=== PATIENT | female | born 1930 | race Caucasian/White ===

== ENCOUNTER 2016-07-22 18:34 | Inpatient (IN) | payer OTHER ==
[~2016-07-22] VITALS: Ht 152.4 cm; Wt 44.5 kg
[~2016-07-22 18:34] MED LIST: ACET325T14 PO; ALPR-475; AMLO10TA4 PO; DOCU100C8; FAMO-79 PO; HYDR-3144 PO; HYDR1TAB16; LEVO500T8 PO; LISI-467 PO; LISI30TA; METO-93 PO; METO25TA2; MIRT30TA3; SIMV20TA
[2016-07-22] MEDS ORDERED: SODIUM CHLORIDE 0.9% 1,000ML IVBOLUS ONE ×2 (19:30→20:00)
[2016-07-22] MEDS ORDERED: SODIUM CHLORIDE FLUSH 10ML SYR IVF ONE (20:00)
[2016-07-22] MEDS ORDERED: DILTIAZEM 5 MG/ML, 5ML IVPush ONE (20:00)
[2016-07-22 20:17] LABS: HEMOGLOBIN 12.9 g/dL (11.7-16.4)
[2016-07-22] MEDS ORDERED: DILTIAZEM 5 MG/ML, 5ML ONE (20:21)
[2016-07-22 20:30] LABS: ASPARTATE AMINO TRANSFERASE 15 U/L (15-37); BLOOD UREA NITROGEN 50 mg/dL (7-18)
[2016-07-22] MEDS ORDERED: DILTIAZEM 125 MG in DEXTROSE 5% 100 ML IV SCH (20:43)
[2016-07-22] MEDS ORDERED: UNKNOWN BP MED PO (20:47)
[2016-07-22 21:58] LABS: PATH.CAST-FLAG NOT PRESENT; SPERM-FLAG NOT PRESENT; SRC-FLAG NOT PRESENT; XTAL-FLAG NOT PRESENT; YLC-FLAG NOT PRESENT
[2016-07-22] MEDS ORDERED: SODIUM CHLORIDE FLUSH 10ML SYR IVF PRN (22:30)
[2016-07-22] MEDS ORDERED: ACETAMINOPHEN 325 MG TABLET PO PRN (23:00)
[2016-07-22] MEDS ORDERED: ONDANSETRON ODT 4 MG PO PRN (23:00)
[2016-07-22] MEDS ORDERED: BISACODYL 10 MG SUPP PR PRN (23:00)
[2016-07-22] MEDS ORDERED: POLYETHYLENE GLYCOL 17 GM PACKET PO PRN (23:00)
[2016-07-22] MEDS ORDERED: VANCOMYCIN PER PHARMACY MC PRN (23:00)
[2016-07-22] MEDS ORDERED: ENOXAPARIN 40 MG/0.4 ML SQ SCH (23:00)
[2016-07-22] MEDS ORDERED: DOCUSATE 100 MG CAPSULE PO PRN (23:00)
[2016-07-23] MEDS ORDERED: CEFTRIAXONE PMX 2GM/50ML 50 ML ONE (00:15)
[2016-07-23] MEDS ORDERED: NS + 20MEQ KCL 1,000 ML IV ONE (00:16)
[2016-07-23] MEDS ORDERED: ENOXAPARIN 40 MG/0.4 ML ONE (00:17)
[2016-07-23] MEDS: CEFTRIAXONE PMX 2GM/50ML 50 ML IV SCH ×2 (00:56→23:25)
[2016-07-23] MEDS: NS + 20MEQ KCL 1,000 ML IV SCH ×4 (00:56→18:34)
[2016-07-23] MEDS ORDERED: PHARMACOKINETIC MONITORING MC PRN (02:30)
[2016-07-23] MEDS: VANCOMYCIN PMX 1GM/200ML 200 ML IV SCH (03:53)
[2016-07-23] MEDS: ENOXAPARIN 30 MG/0.3 ML SQ SCH (03:57)
[2016-07-23 04:53] LABS: HEMOGLOBIN 11.9 g/dL (11.7-16.4)
[2016-07-23 05:01] VITALS: BP 146/94
[2016-07-23 05:14] LABS: ASPARTATE AMINO TRANSFERASE 11 U/L (15-37); BLOOD UREA NITROGEN 36 mg/dL (7-18)
[2016-07-23 05:19] LABS: IS PT STATUS REG ER OR PRE ER? NO
[2016-07-23] MEDS: ASPIRIN 325 MG TABLET PO SCH (05:21)
[2016-07-23 08:01] VITALS: BP 159/84
[2016-07-23 11:13] LABS: IS PT STATUS REG ER OR PRE ER? NO
[2016-07-23] MEDS: DILTIAZEM 120 MG CAP.ER.12H PO SCH (12:18)
[2016-07-23 13:16] VITALS: BP 136/95
[2016-07-23] MEDS: VANCOMYCIN 50 MG/ML ORAL SUSP PO SCH ×2 (15:30→21:03)
[2016-07-23 19:35] VITALS: BP 89/47
[2016-07-23] MEDS: SIMVASTATIN 20 MG TABLET PO SCH (21:03)
[2016-07-24 00:24] VITALS: BP 123/100
[2016-07-24] MEDS ORDERED: ALBUTEROL SULFATE 2.5 MG/3 ML ONE (02:09)
[2016-07-24] MEDS: ENOXAPARIN 30 MG/0.3 ML SQ SCH (02:43)
[2016-07-24] MEDS: VANCOMYCIN PMX 1GM/200ML 200 ML IV SCH (02:44)
[2016-07-24] MEDS: NS + 20MEQ KCL 1,000 ML IV SCH (02:44)
[2016-07-24] MEDS: VANCOMYCIN 50 MG/ML ORAL SUSP PO SCH ×4 (02:45→20:58)
[2016-07-24 03:00] LABS: ABG COLLECTION SITE RIGHT RADIAL; COLLATERAL CIRCULATION TESTING NORMAL
[2016-07-24] MEDS ORDERED: ALBUTEROL SULFATE 2.5 MG/3 ML NPPB PRN (03:00)
[2016-07-24] MEDS ORDERED: FUROSEMIDE 40 MG/4 ML IV ONE (04:00)
[2016-07-24 07:02] VITALS: BP 98/73
[2016-07-24] MEDS: ASPIRIN 325 MG TABLET PO SCH (08:16)
[2016-07-24] MEDS: DILTIAZEM 120 MG CAP.ER.12H PO SCH (08:16)
[2016-07-24 08:49] LABS: BLOOD UREA NITROGEN 17 mg/dL (7-18)
[2016-07-24] MEDS ORDERED: NITROFURANTOIN (MACROBID) 100 MG CAPSULE PO SCH (11:30)
[2016-07-24] MEDS: CEFTRIAXONE PMX 1GM/50ML 50 ML IV SCH (12:39)
[2016-07-24 12:56] VITALS: BP 84/62
[2016-07-24] MEDS ORDERED: SODIUM CHLORIDE 0.9%, 250ML IVBOLUS ONE (15:30)
[2016-07-24] MEDS: SIMVASTATIN 20 MG TABLET PO SCH (20:58)
[2016-07-24] MEDS: LABETALOL 5MG/ML, 20ML IV PRN (22:17)
[2016-07-25] MEDS: LABETALOL 5MG/ML, 20ML IV PRN ×2 (02:25→12:43)
[2016-07-25] MEDS: VANCOMYCIN 50 MG/ML ORAL SUSP PO SCH ×4 (02:32→21:09)
[2016-07-25] MEDS: VANCOMYCIN PMX 1GM/200ML 200 ML IV SCH (02:33)
[2016-07-25] MEDS: ENOXAPARIN 30 MG/0.3 ML SQ SCH (02:33)
[2016-07-25] MEDS: ASPIRIN 325 MG TABLET PO SCH ×2 (06:00→06:39)
[2016-07-25] MEDS: DILTIAZEM 120 MG CAP.ER.12H PO SCH (09:00)
[2016-07-25 09:09] LABS: HEMOGLOBIN 12.4 g/dL (11.7-16.4)
[2016-07-25 09:16] LABS: BLOOD UREA NITROGEN 11 mg/dL (7-18)
[2016-07-25 09:24] LABS: DIFF TOTAL CELLS COUNTED 100 CELL DIFF
[2016-07-25] MEDS ORDERED: POTASSIUM CHLORIDE 20 MEQ in SODIUM CHLORIDE 0.9% 250 ML IV ONE (09:30)
[2016-07-25 09:37] LABS: VERIFY COUNTS? YES
[2016-07-25] MEDS: CEFTRIAXONE PMX 1GM/50ML 50 ML IV SCH (11:18)
[2016-07-25 14:55] VITALS: BP 160/77
[2016-07-25 15:16] VITALS: BP 197/95
[2016-07-25 18:37] VITALS: BP 151/87
[2016-07-25 19:07] VITALS: BP 173/84
[2016-07-25] MEDS: SIMVASTATIN 20 MG TABLET PO SCH ×2 (21:00→21:09)
[2016-07-26] MEDS: VANCOMYCIN 50 MG/ML ORAL SUSP PO SCH ×4 (02:30→21:11)
[2016-07-26] MEDS: ENOXAPARIN 30 MG/0.3 ML SQ SCH (05:46)
[2016-07-26] MEDS: VANCOMYCIN PMX 1GM/200ML 200 ML IV SCH (05:55)
[2016-07-26] MEDS: ASPIRIN 325 MG TABLET PO SCH (05:56)
[2016-07-26 06:35] VITALS: BP 156/83
[2016-07-26] MEDS: DILTIAZEM 120 MG CAP.ER.12H PO SCH ×2 (09:42→11:42)
[2016-07-26] MEDS: LEVOFLOXACIN/PMX 500MG/100ML 100 ML IV SCH (11:41)
[2016-07-26 12:30] VITALS: BP 122/92
[2016-07-26 19:19] VITALS: BP 140/79
[2016-07-26] MEDS: SIMVASTATIN 20 MG TABLET PO SCH (21:00)
[2016-07-26] MEDS: MIRTAZAPINE 30 MG TAB.RAPDIS PO SCH (21:11)
[2016-07-27 01:59] VITALS: BP 114/80
[2016-07-27] MEDS: VANCOMYCIN 50 MG/ML ORAL SUSP PO SCH ×4 (02:30→20:38)
[2016-07-27 03:08] VITALS: BP_SYST 174; BP_SYST 179; BP_DIAS 73; BP_DIAS 80
[2016-07-27] MEDS: ENOXAPARIN 30 MG/0.3 ML SQ SCH (05:17)
[2016-07-27] MEDS: ASPIRIN 325 MG TABLET PO SCH (05:24)
[2016-07-27 06:30] VITALS: BP 166/87
[2016-07-27] MEDS: DILTIAZEM 120 MG CAP.ER.12H PO SCH (08:25)
[2016-07-27] MEDS: LEVOFLOXACIN/PMX 500MG/100ML 100 ML IV SCH (10:25)
[2016-07-27 12:32] VITALS: BP 143/61
[2016-07-27] MEDS ORDERED: GADOBUTROL 7.5 MMOL/7.5 ML PFS ONE (17:01)
[2016-07-27 18:40] VITALS: BP 113/76
[2016-07-27 18:48] VITALS: BP 168/68
[2016-07-27] MEDS: SIMVASTATIN 20 MG TABLET PO SCH (20:39)
[2016-07-27] MEDS: MIRTAZAPINE 30 MG TAB.RAPDIS PO SCH (20:39)
[2016-07-28 02:19] VITALS: BP 154/76
[2016-07-28] MEDS: VANCOMYCIN 50 MG/ML ORAL SUSP PO SCH ×4 (03:48→21:02)
[2016-07-28] MEDS: ASPIRIN 325 MG TABLET PO SCH (05:06)
[2016-07-28] MEDS: ENOXAPARIN 30 MG/0.3 ML SQ SCH (05:06)
[2016-07-28 05:20] LABS: HEMOGLOBIN 12.6 g/dL (11.7-16.4)
[2016-07-28 05:36] LABS: BLOOD UREA NITROGEN 16 mg/dL (7-18)
[2016-07-28 06:32] VITALS: BP 168/76
[2016-07-28] MEDS: DILTIAZEM 120 MG CAP.ER.12H PO SCH (09:46)
[2016-07-28] MEDS: LEVOFLOXACIN/PMX 500MG/100ML 100 ML IV SCH (11:15)
[2016-07-28 13:32] VITALS: BP 159/72
[2016-07-28 19:24] VITALS: BP 172/74
[2016-07-28 19:31] VITALS: BP 180/78
[2016-07-28] MEDS: TRAZODONE 50MG TABLET PO PRN ×2 (21:02→23:34)
[2016-07-28] MEDS: MIRTAZAPINE 30 MG TAB.RAPDIS PO SCH (21:02)
[2016-07-28] MEDS: SIMVASTATIN 20 MG TABLET PO SCH (21:02)
[2016-07-29 03:00] VITALS: BP 162/74
[2016-07-29] MEDS: VANCOMYCIN 50 MG/ML ORAL SUSP PO SCH ×4 (03:39→21:30)
[2016-07-29 05:18] VITALS: BP 144/112
[2016-07-29 05:25] LABS: HEMOGLOBIN 11.8 g/dL (11.7-16.4)
[2016-07-29] MEDS: ENOXAPARIN 30 MG/0.3 ML SQ SCH (05:44)
[2016-07-29] MEDS: ASPIRIN 325 MG TABLET PO SCH (05:44)
[2016-07-29 05:47] LABS: BLOOD UREA NITROGEN 13 mg/dL (7-18)
[2016-07-29 08:00] VITALS: BP 158/98
[2016-07-29] MEDS: DILTIAZEM 120 MG CAP.ER.12H PO SCH (10:20)
[2016-07-29] MEDS: LEVOFLOXACIN/PMX 500MG/100ML 100 ML IV SCH (11:00)
[2016-07-29] MEDS ORDERED: CATHFLO-ALTEPLASE 2 MG/2 ML CATHFLUSH ONE ×2 (13:30→18:00)
[2016-07-29 16:20] VITALS: BP 156/64
[2016-07-29 19:38] VITALS: BP 123/50
[2016-07-29] MEDS: SIMVASTATIN 20 MG TABLET PO SCH (21:30)
[2016-07-29] MEDS: TRAZODONE 50MG TABLET PO PRN (21:30)
[2016-07-29] MEDS: MIRTAZAPINE 30 MG TAB.RAPDIS PO SCH (21:31)
[2016-07-30 02:27] VITALS: BP 155/71
[2016-07-30] MEDS: VANCOMYCIN 50 MG/ML ORAL SUSP PO SCH ×4 (03:31→20:32)
[2016-07-30] MEDS: ENOXAPARIN 30 MG/0.3 ML SQ SCH (05:10)
[2016-07-30] MEDS: ASPIRIN 325 MG TABLET PO SCH (05:10)
[2016-07-30 06:00] LABS: HEMOGLOBIN 12.3 g/dL (11.7-16.4)
[2016-07-30 06:02] LABS: BLOOD UREA NITROGEN 12 mg/dL (7-18)
[2016-07-30 08:48] VITALS: BP 118/76
[2016-07-30] MEDS: DILTIAZEM 120 MG CAP.ER.12H PO SCH (09:01)
[2016-07-30] MEDS ORDERED: POTASSIUM CHLORIDE 20 MEQ TAB.ER.PRT PO ONE (11:30)
[2016-07-30] MEDS: LEVOFLOXACIN/PMX 500MG/100ML 100 ML IV SCH (11:33)
[2016-07-30 14:22] VITALS: BP 162/69
[2016-07-30 18:44] VITALS: BP 197/85
[2016-07-30] MEDS: TRAZODONE 50MG TABLET PO PRN (20:31)
[2016-07-30] MEDS: SIMVASTATIN 20 MG TABLET PO SCH (20:31)
[2016-07-30] MEDS: MIRTAZAPINE 30 MG TAB.RAPDIS PO SCH (20:31)
[2016-07-31 00:33] VITALS: BP 138/62
[2016-07-31] MEDS: VANCOMYCIN 50 MG/ML ORAL SUSP PO SCH ×4 (01:55→20:40)
[2016-07-31] MEDS: ASPIRIN 325 MG TABLET PO SCH (05:36)
[2016-07-31] MEDS: ENOXAPARIN 30 MG/0.3 ML SQ SCH (05:37)
[2016-07-31 06:23] LABS: BLOOD UREA NITROGEN 15 mg/dL (7-18)
[2016-07-31 07:34] LABS: HEMOGLOBIN 11.9 g/dL (11.7-16.4)
[2016-07-31 07:39] VITALS: BP 127/88
[2016-07-31] MEDS: DILTIAZEM 120 MG CAP.ER.12H PO SCH (08:34)
[2016-07-31] MEDS: LEVOFLOXACIN/PMX 500MG/100ML 100 ML IV SCH (10:44)
[2016-07-31 14:29] VITALS: BP 181/77
[2016-07-31 18:41] VITALS: BP 145/78
[2016-07-31] MEDS: SIMVASTATIN 20 MG TABLET PO SCH (20:40)
[2016-07-31] MEDS: MIRTAZAPINE 30 MG TAB.RAPDIS PO SCH (20:40)
[2016-08-01] VITALS (8 sets, daily range): BP systolic 108–196; BP diastolic 62–84
[2016-08-01] MEDS: LABETALOL 5MG/ML, 20ML IV PRN (01:45)
[2016-08-01] MEDS: VANCOMYCIN 50 MG/ML ORAL SUSP PO SCH ×4 (01:45→20:52)
[2016-08-01] MEDS: ENOXAPARIN 30 MG/0.3 ML SQ SCH (05:29)
[2016-08-01] MEDS: ASPIRIN 325 MG TABLET PO SCH (05:29)
[2016-08-01] MEDS ORDERED: MAGNESIUM SULFATE PMX 2GM/50ML 50 ML IV ONE (07:00)
[2016-08-01] MEDS: DILTIAZEM 120 MG CAP.ER.12H PO SCH (08:25)
[2016-08-01] MEDS: hydrALAzine 20 MG/ML, 1ML IV PRN ×3 (08:28→21:05)
[2016-08-01] MEDS: LEVOFLOXACIN/PMX 500MG/100ML 100 ML IV SCH (12:02)
[2016-08-01] MEDS: MIRTAZAPINE 30 MG TAB.RAPDIS PO SCH (20:52)
[2016-08-01] MEDS: SIMVASTATIN 20 MG TABLET PO SCH (20:52)
[2016-08-02 00:36] VITALS: BP 180/61
[2016-08-02 00:46] VITALS: BP 159/63
[2016-08-02] MEDS: VANCOMYCIN 50 MG/ML ORAL SUSP PO SCH ×4 (02:58→23:03)
[2016-08-02] MEDS: ENOXAPARIN 30 MG/0.3 ML SQ SCH (05:48)
[2016-08-02] MEDS: ASPIRIN 325 MG TABLET PO SCH (05:48)
[2016-08-02 07:07] VITALS: BP 163/75
[2016-08-02] MEDS: LEVOFLOXACIN/PMX 500MG/100ML 100 ML IV SCH (11:12)
[2016-08-02] MEDS: DILTIAZEM 120 MG CAP.ER.12H PO SCH (11:12)
[2016-08-02 12:54] VITALS: BP 164/63
[2016-08-02 19:24] VITALS: BP 155/80
[2016-08-02] MEDS: SIMVASTATIN 20 MG TABLET PO SCH (23:03)
[2016-08-02] MEDS: MIRTAZAPINE 30 MG TAB.RAPDIS PO SCH (23:03)
[2016-08-03 03:14] VITALS: BP 186/70
[2016-08-03] MEDS: VANCOMYCIN 50 MG/ML ORAL SUSP PO SCH ×4 (04:09→23:15)
[2016-08-03 04:17] VITALS: BP 158/68
[2016-08-03] MEDS: ENOXAPARIN 30 MG/0.3 ML SQ SCH (05:50)
[2016-08-03] MEDS: ASPIRIN 325 MG TABLET PO SCH (05:51)
[2016-08-03 06:18] LABS: HEMOGLOBIN 11.2 g/dL (11.7-16.4)
[2016-08-03 06:25] LABS: ASPARTATE AMINO TRANSFERASE 15 U/L (15-37); BLOOD UREA NITROGEN 19 mg/dL (7-18)
[2016-08-03 08:49] VITALS: BP 162/69
[2016-08-03] MEDS: DILTIAZEM 120 MG CAP.ER.12H PO SCH (09:28)
[2016-08-03 14:00] VITALS: BP 154/56
[2016-08-03] MEDS ORDERED: VANC1VIA3 PO (14:17)
[2016-08-03] MEDS ORDERED: ASPI325T4 PO (14:17)
[2016-08-03] MEDS ORDERED: DILT120C11 PO (14:17)
[2016-08-03] MEDS ORDERED: DOCU-30 PO (14:17)
[2016-08-03] MEDS: SODIUM CHLORIDE 0.9% 1,000 ML IV SCH (14:57)
[2016-08-03 20:56] VITALS: BP 198/69
[2016-08-03] MEDS: SIMVASTATIN 20 MG TABLET PO SCH (23:15)
[2016-08-03] MEDS: MIRTAZAPINE 30 MG TAB.RAPDIS PO SCH (23:15)
[2016-08-04 00:42] VITALS: BP 193/69
[2016-08-04] MEDS: VANCOMYCIN 50 MG/ML ORAL SUSP PO SCH ×4 (02:33→20:15)
[2016-08-04] MEDS: SODIUM CHLORIDE 0.9% 1,000 ML IV SCH ×2 (02:33→20:16)
[2016-08-04] MEDS: ENOXAPARIN 30 MG/0.3 ML SQ SCH (05:59)
[2016-08-04] MEDS: ASPIRIN 325 MG TABLET PO SCH (05:59)
[2016-08-04 06:28] LABS: HEMOGLOBIN 11.4 g/dL (11.7-16.4)
[2016-08-04 06:40] LABS: ASPARTATE AMINO TRANSFERASE 18 U/L (15-37); BLOOD UREA NITROGEN 13 mg/dL (7-18)
[2016-08-04] MEDS: DILTIAZEM 120 MG CAP.ER.12H PO SCH (08:26)
[2016-08-04 08:28] VITALS: BP 198/72
[2016-08-04] MEDS ORDERED: POTASSIUM CHLORIDE 20 MEQ TAB.ER.PRT PO ONE (08:30)
[2016-08-04] MEDS ORDERED: MAGNESIUM SULFATE PMX 4GM/100M 100 ML IV ONE (13:30)
[2016-08-04 15:09] VITALS: BP 176/74
[2016-08-04] MEDS: hydrALAzine 20 MG/ML, 1ML IV PRN (15:15)
[2016-08-04 16:01] VITALS: BP 163/73
[2016-08-04 16:22] VITALS: BP 158/62
[2016-08-04] MEDS: TRAZODONE 50MG TABLET PO PRN (20:15)
[2016-08-04] MEDS: MIRTAZAPINE 30 MG TAB.RAPDIS PO SCH (20:15)
[2016-08-04] MEDS: SIMVASTATIN 20 MG TABLET PO SCH (20:15)
[2016-08-04 20:38] VITALS: BP 145/72
[2016-08-05 03:15] VITALS: BP 168/63
[2016-08-05] MEDS: VANCOMYCIN 50 MG/ML ORAL SUSP PO SCH ×4 (03:15→22:15)
[2016-08-05] MEDS: ENOXAPARIN 30 MG/0.3 ML SQ SCH (05:18)
[2016-08-05] MEDS: ASPIRIN 325 MG TABLET PO SCH (05:18)
[2016-08-05 05:48] LABS: BLOOD UREA NITROGEN 13 mg/dL (7-18)
[2016-08-05 05:49] LABS: HEMOGLOBIN 11.5 g/dL (11.7-16.4)
[2016-08-05 05:52] LABS: ASPARTATE AMINO TRANSFERASE 16 U/L (15-37)
[2016-08-05 07:54] VITALS: BP 152/65
[2016-08-05] MEDS: DILTIAZEM 120 MG CAP.ER.12H PO SCH (09:00)
[2016-08-05] MEDS: SODIUM CHLORIDE 0.9% 1,000 ML IV SCH ×2 (09:29→22:15)
[2016-08-05 13:10] VITALS: BP 153/78
[2016-08-05 20:00] VITALS: BP 182/73
[2016-08-05] MEDS: hydrALAzine 20 MG/ML, 1ML IV PRN (22:15)
[2016-08-05] MEDS: SIMVASTATIN 20 MG TABLET PO SCH (22:15)
[2016-08-05] MEDS: MIRTAZAPINE 30 MG TAB.RAPDIS PO SCH (22:15)
[2016-08-05 23:26] VITALS: BP 152/71
[2016-08-06 04:10] VITALS: BP 192/68
[2016-08-06] MEDS: VANCOMYCIN 50 MG/ML ORAL SUSP PO SCH (04:12)
[2016-08-06] MEDS: LABETALOL 5MG/ML, 20ML IV PRN (04:12)
[2016-08-06 04:37] VITALS: BP 141/61
[2016-08-06] MEDS: ASPIRIN 325 MG TABLET PO SCH (05:40)
[2016-08-06] MEDS: ENOXAPARIN 30 MG/0.3 ML SQ SCH (05:40)
[2016-08-06 06:43] VITALS: BP 154/73
[2016-08-06] MEDS ORDERED: DABI150C PO (08:51)
[2016-08-06] MEDS ORDERED: FLU VACC QS2016-17 (36MOS+)UP/PF 0.5 ML IM-VACC ONE (09:00)
[2016-08-06] MEDS ORDERED: DABIGATRAN 150 MG CAPSULE PO SCH (09:00)
== END 2016-08-06 09:10 | DRG 871 ==
LOC: ED 22:00 → EDIP 22:01 → ED 22:09 → CCU 07-23 02:22 → ICU 07-23 07:45 → CCU 07-24 16:46 → 4EST 07-25 14:13
PROVIDERS: ADMIT Internal Medicine; ATTEND Internal Medicine
PROC: 02HV33Z Insertion of Infusion Device into Superior Vena Cava, Percutaneous Approach (ICD-10-PCS; principal; 2016-07-24)
PROC: B548ZZA Ultrasonography of Superior Vena Cava, Guidance (ICD-10-PCS; 2016-07-24)
PROC: 0T9B70Z Drainage of Bladder with Drainage Device, Via Natural or Artificial Opening (ICD-10-PCS; 2016-07-24)
DX: A41.81 Sepsis due to Enterococcus (principal); E43 Unspecified severe protein-calorie malnutrition; I63.9 Cerebral infarction, unspecified; N39.0 Urinary tract infection, site not specified; A04.7 Enterocolitis due to Clostridium difficile; Z68.1 Body mass index [BMI] 19.9 or less, adult; E87.2 Acidosis; R47.01 Aphasia; I48.91 Unspecified atrial fibrillation; B95.2 Enterococcus as the cause of diseases classified elsewhere; D64.9 Anemia, unspecified; D75.89 Other specified diseases of blood and blood-forming organs; E03.9 Hypothyroidism, unspecified; E78.00 Pure hypercholesterolemia, unspecified; E78.5 Hyperlipidemia, unspecified; E83.42 Hypomagnesemia; E87.6 Hypokalemia; F03.90 Unspecified dementia, unspecified severity, without behavioral disturbance, psychotic disturbance, mood disturbance, and anxiety; I10 Essential (primary) hypertension; I65.22 Occlusion and stenosis of left carotid artery; J44.9 Chronic obstructive pulmonary disease, unspecified; K21.9 Gastro-esophageal reflux disease without esophagitis; M06.9 Rheumatoid arthritis, unspecified; M19.90 Unspecified osteoarthritis, unspecified site; M48.00 Spinal stenosis, site unspecified; N93.9 Abnormal uterine and vaginal bleeding, unspecified; Z66 Do not resuscitate; Z79.82 Long term (current) use of aspirin; Z79.899 Other long term (current) drug therapy; Z82.3 Family history of stroke; Z87.440 Personal history of urinary (tract) infections; Z23 Encounter for immunization; Z90.49 Acquired absence of other specified parts of digestive tract; Z90.89 Acquired absence of other organs; Z88.2 Allergy status to sulfonamides; Z88.8 Allergy status to other drugs, medicaments and biological substances; Z91.041 Radiographic dye allergy status
CPT/HCPCS: 36415; 36569; 36600; 70553; 71010; 74022; 76937; 77001; 80048; 80053; 80061; 80202; 81001; 82803; 83036; 83605; 83735; 84145; 84439; 84443; 84484; 85025; 85610; 87040; 87077; 87081; 87086; 87186; 87324; 87493; 89055; 90686; 93005; 93306; 93880; 94640; 96361; 96365; 96366; 96368; 96372; 96376; A9585; J0696; J1650; J1940; J1956; J2997; J3370; J3480; J7613; 92523-GN; C1751; J0360; J3475; J7030; J7050

== ENCOUNTER 2016-09-16 19:46 | Emergency (ER) | payer OTHER ==
[~2016-09-16] VITALS: Ht 157.5 cm; Wt 49.5 kg
[~2016-09-16 19:46] MED LIST changes: +ASPI325T4 PO; +DABI150C PO; +DILT120C11 PO; +DOCU-30 PO; +UNKNOWN BP MED PO; +VANC1VIA3 PO
[2016-09-16] MEDS ORDERED: SODIUM CHLORIDE FLUSH 10ML SYR IVF ONE (20:30)
[2016-09-16 20:54] LABS: BLOOD UREA NITROGEN 21 mg/dL (7-18)
[2016-09-16] MEDS ORDERED: CEFTRIAXONE PMX 1GM/50ML 50 ML IV ONE (22:00)
[2016-09-16] MEDS ORDERED: CEFTRIAXONE 1,000 MG IM ONE (22:00)
[2016-09-16] MEDS ORDERED: CEFTRIAXONE 1,000 MG ONE (22:23)
[2016-09-16 22:49] VITALS: BP 118/68
== END 2016-09-16 22:51 | disposition home or self-care (01) ==
LOC: ED 22:30
DX: N30.00 Acute cystitis without hematuria (principal); K21.9 Gastro-esophageal reflux disease without esophagitis; E78.00 Pure hypercholesterolemia, unspecified; E03.9 Hypothyroidism, unspecified; Z86.73 Personal history of transient ischemic attack (TIA), and cerebral infarction without residual deficits; Z90.710 Acquired absence of both cervix and uterus
CPT/HCPCS: 36415; 71010; 80048; 81001; 82040; 85025; 87077; 87086; 93005; 96372; 99285; J0696; 87186

== ENCOUNTER 2016-09-23 18:34 | Inpatient (IN) | payer OTHER ==
[~2016-09-23] VITALS: Ht 154.9 cm; Wt 49.5 kg
[2016-09-23] MEDS ORDERED: SODIUM CHLORIDE FLUSH 10ML SYR IVF ONE (19:00)
[2016-09-23] MEDS ORDERED: SODIUM CHLORIDE 0.9% 1,000ML IVBOLUS ONE (19:00)
[2016-09-23 19:28] LABS: ASPARTATE AMINO TRANSFERASE 14 U/L (15-37); BLOOD UREA NITROGEN 20 mg/dL (7-18)
[2016-09-23 19:34] LABS: IS PT STATUS REG ER OR PRE ER? YES
[2016-09-23] MEDS ORDERED: LISI5TAB7 PO (20:53)
[2016-09-23] MEDS ORDERED: MIRT30TA4 PO (20:53)
[2016-09-23] MEDS ORDERED: ONDANSETRON 2MG/ML, 2ML IVPush PRN (21:00)
[2016-09-23] MEDS ORDERED: ACETAMINOPHEN 325 MG TABLET PO PRN (21:00)
[2016-09-23 22:28] VITALS: BP 105/73
[2016-09-23] MEDS: SODIUM CHLORIDE 0.9% 1,000 ML IV SCH (23:12)
[2016-09-23] MEDS: SIMVASTATIN 20 MG TABLET PO SCH (23:13)
[2016-09-23] MEDS: MIRTAZAPINE 15 MG TABLET PO SCH (23:13)
[2016-09-23] MEDS: DABIGATRAN 150 MG CAPSULE PO SCH (23:13)
[2016-09-23] MEDS: VANCOMYCIN 50 MG/ML ORAL SUSP PO SCH (23:13)
[2016-09-24 01:27] VITALS: BP_SYST 214; BP_SYST 84; BP_DIAS 57; BP_DIAS 68
[2016-09-24] MEDS: VANCOMYCIN 50 MG/ML ORAL SUSP PO SCH ×4 (05:14→23:07)
[2016-09-24 05:19] VITALS: BP_SYST 204; BP_SYST 214; BP_SYST 89; BP_DIAS 65; BP_DIAS 68
[2016-09-24 06:35] LABS: ASPARTATE AMINO TRANSFERASE 6 U/L (15-37); BLOOD UREA NITROGEN 17 mg/dL (7-18)
[2016-09-24 08:15] VITALS: BP 99/70
[2016-09-24] MEDS: DILTIAZEM 120 MG CAP.ER.12H PO SCH (09:15)
[2016-09-24] MEDS: DABIGATRAN 150 MG CAPSULE PO SCH ×2 (09:15→20:32)
[2016-09-24] MEDS: SODIUM CHLORIDE 0.9% 1,000 ML IV SCH (10:18)
[2016-09-24] MEDS: LACTOBACILLUS 1GM/ PACKET PO SCH ×3 (11:57→20:32)
[2016-09-24] MEDS: METRONIDAZOLE PMX 500MG/100ML 100 ML IV SCH ×2 (11:57→20:32)
[2016-09-24 14:30] VITALS: BP 99/69
[2016-09-24 19:58] VITALS: BP 198/79
[2016-09-24] MEDS: MIRTAZAPINE 15 MG TABLET PO SCH (20:32)
[2016-09-24] MEDS: SIMVASTATIN 20 MG TABLET PO SCH (20:32)
[2016-09-25 01:56] VITALS: BP 170/83
[2016-09-25] MEDS: METRONIDAZOLE PMX 500MG/100ML 100 ML IV SCH ×3 (04:06→20:14)
[2016-09-25] MEDS: SODIUM CHLORIDE 0.9% 1,000 ML IV SCH ×2 (04:06→17:09)
[2016-09-25] MEDS: VANCOMYCIN 50 MG/ML ORAL SUSP PO SCH ×4 (05:24→23:03)
[2016-09-25 07:55] VITALS: BP 180/100
[2016-09-25] MEDS: DABIGATRAN 150 MG CAPSULE PO SCH ×2 (09:14→20:13)
[2016-09-25] MEDS: LACTOBACILLUS 1GM/ PACKET PO SCH ×3 (09:14→20:13)
[2016-09-25] MEDS: DILTIAZEM 120 MG CAP.ER.12H PO SCH (09:14)
[2016-09-25 13:03] VITALS: BP 139/65
[2016-09-25 19:08] VITALS: BP 198/71
[2016-09-25] MEDS: MIRTAZAPINE 15 MG TABLET PO SCH (20:13)
[2016-09-25] MEDS: LISINOPRIL 10 MG TABLET PO SCH (20:13)
[2016-09-25] MEDS: SIMVASTATIN 20 MG TABLET PO SCH (20:13)
[2016-09-26] MEDS: METRONIDAZOLE PMX 500MG/100ML 100 ML IV SCH ×2 (03:59→12:52)
[2016-09-26 05:18] VITALS: BP 186/80
[2016-09-26] MEDS: ASPIRIN 81 MG TABLET EC PO SCH (05:28)
[2016-09-26] MEDS: VANCOMYCIN 50 MG/ML ORAL SUSP PO SCH ×4 (05:28→23:31)
[2016-09-26 07:45] VITALS: BP 120/75
[2016-09-26] MEDS: DILTIAZEM 120 MG CAP.ER.12H PO SCH (09:03)
[2016-09-26] MEDS: DABIGATRAN 150 MG CAPSULE PO SCH ×2 (09:03→20:51)
[2016-09-26] MEDS: LACTOBACILLUS 1GM/ PACKET PO SCH ×3 (09:03→20:51)
[2016-09-26] MEDS: LISINOPRIL 10 MG TABLET PO SCH (09:03)
[2016-09-26] MEDS: SODIUM CHLORIDE 0.9% 1,000 ML IV SCH ×2 (09:10→19:27)
[2016-09-26 15:30] VITALS: BP 174/73
[2016-09-26 20:20] VITALS: BP 208/71
[2016-09-26] MEDS: MIRTAZAPINE 15 MG TABLET PO SCH (20:51)
[2016-09-26] MEDS: SIMVASTATIN 20 MG TABLET PO SCH (20:51)
[2016-09-27 02:37] VITALS: BP 192/100
[2016-09-27] MEDS: VANCOMYCIN 50 MG/ML ORAL SUSP PO SCH ×4 (05:22→22:56)
[2016-09-27] MEDS: ASPIRIN 81 MG TABLET EC PO SCH (05:22)
[2016-09-27 07:56] VITALS: BP 195/69
[2016-09-27] MEDS: LISINOPRIL 10 MG TABLET PO SCH (09:00)
[2016-09-27] MEDS: SODIUM CHLORIDE 0.9% 1,000 ML IV SCH ×2 (09:50→22:49)
[2016-09-27] MEDS: DILTIAZEM 120 MG CAP.ER.12H PO SCH (11:35)
[2016-09-27] MEDS: LACTOBACILLUS 1GM/ PACKET PO SCH ×3 (11:35→21:25)
[2016-09-27] MEDS: DABIGATRAN 150 MG CAPSULE PO SCH ×2 (11:36→21:25)
[2016-09-27] MEDS: LISINOPRIL 20 MG TABLET PO SCH ×2 (11:36→21:25)
[2016-09-27 13:32] VITALS: BP 185/68
[2016-09-27] MEDS: CARVEDILOL 6.25 MG TABLET PO SCH (18:22)
[2016-09-27 20:34] VITALS: BP 143/77
[2016-09-27] MEDS: SIMVASTATIN 20 MG TABLET PO SCH (21:25)
[2016-09-27] MEDS: MIRTAZAPINE 15 MG TABLET PO SCH (21:26)
[2016-09-28 01:05] VITALS: BP 148/71
[2016-09-28] MEDS: CARVEDILOL 6.25 MG TABLET PO SCH ×2 (05:37→18:14)
[2016-09-28] MEDS: VANCOMYCIN 50 MG/ML ORAL SUSP PO SCH ×3 (05:37→18:14)
[2016-09-28] MEDS: ASPIRIN 81 MG TABLET EC PO SCH (05:37)
[2016-09-28 07:59] VITALS: BP 143/75
[2016-09-28] MEDS: DABIGATRAN 150 MG CAPSULE PO SCH ×2 (10:59→21:00)
[2016-09-28] MEDS: LACTOBACILLUS 1GM/ PACKET PO SCH ×3 (10:59→21:00)
[2016-09-28] MEDS: DILTIAZEM 120 MG CAP.ER.12H PO SCH (10:59)
[2016-09-28] MEDS: LISINOPRIL 20 MG TABLET PO SCH ×2 (11:00→21:00)
[2016-09-28] MEDS: SODIUM CHLORIDE 0.9% 1,000 ML IV SCH (11:00)
[2016-09-28 12:38] VITALS: BP 175/68
[2016-09-28] MEDS: QUETIAPINE 25MG TABLET PO SCH (17:00)
[2016-09-28 18:36] VITALS: BP 160/61
[2016-09-28] MEDS: SIMVASTATIN 20 MG TABLET PO SCH (21:00)
[2016-09-28] MEDS: MIRTAZAPINE 15 MG TABLET PO SCH (21:00)
[2016-09-29] MEDS: VANCOMYCIN 50 MG/ML ORAL SUSP PO SCH ×4 (00:04→16:47)
[2016-09-29 00:15] VITALS: BP_SYST 163; BP_SYST 87; BP_DIAS 57; BP_DIAS 75
[2016-09-29] MEDS: SODIUM CHLORIDE 0.9% 1,000 ML IV SCH ×2 (01:50→15:10)
[2016-09-29] MEDS: CARVEDILOL 6.25 MG TABLET PO SCH ×2 (05:23→19:20)
[2016-09-29] MEDS: ASPIRIN 81 MG TABLET EC PO SCH (05:23)
[2016-09-29 06:54] VITALS: BP 141/57
[2016-09-29] MEDS: DILTIAZEM 120 MG CAP.ER.12H PO SCH (09:00)
[2016-09-29] MEDS: LACTOBACILLUS 1GM/ PACKET PO SCH ×3 (09:00→20:15)
[2016-09-29] MEDS: LISINOPRIL 20 MG TABLET PO SCH ×2 (09:00→20:16)
[2016-09-29] MEDS: DABIGATRAN 150 MG CAPSULE PO SCH ×2 (09:00→20:15)
[2016-09-29 13:08] VITALS: BP 73/52
[2016-09-29 19:00] VITALS: BP 201/77
[2016-09-29] MEDS: QUETIAPINE 25MG TABLET PO SCH (20:16)
[2016-09-29] MEDS: SIMVASTATIN 20 MG TABLET PO SCH (20:16)
[2016-09-29] MEDS: MIRTAZAPINE 15 MG TABLET PO SCH (20:16)
[2016-09-30 00:32] VITALS: BP 162/79
[2016-09-30] MEDS: VANCOMYCIN 50 MG/ML ORAL SUSP PO SCH ×4 (00:32→17:32)
[2016-09-30] MEDS: SODIUM CHLORIDE 0.9% 1,000 ML IV SCH ×2 (04:30→17:33)
[2016-09-30] MEDS: CARVEDILOL 6.25 MG TABLET PO SCH ×2 (06:18→17:32)
[2016-09-30] MEDS: ASPIRIN 81 MG TABLET EC PO SCH (06:18)
[2016-09-30 08:19] VITALS: BP 131/71
[2016-09-30] MEDS: LACTOBACILLUS 1GM/ PACKET PO SCH ×3 (09:14→20:37)
[2016-09-30] MEDS: DILTIAZEM 120 MG CAP.ER.12H PO SCH (09:14)
[2016-09-30] MEDS: DABIGATRAN 150 MG CAPSULE PO SCH ×2 (09:14→20:37)
[2016-09-30] MEDS: LISINOPRIL 20 MG TABLET PO SCH ×2 (09:14→20:38)
[2016-09-30 14:10] VITALS: BP 193/65
[2016-09-30] MEDS ORDERED: VANC1VIA3 PO (14:54)
[2016-09-30] MEDS ORDERED: ACET325T14 PO (14:54)
[2016-09-30] MEDS ORDERED: QUET25TA PO (14:54)
[2016-09-30] MEDS ORDERED: LISI-170 PO (14:54)
[2016-09-30] MEDS ORDERED: ASPI-621 PO (14:54)
[2016-09-30] MEDS ORDERED: ACID1GRA2 PO (14:54)
[2016-09-30] MEDS ORDERED: CARV6.2512 PO (14:54)
[2016-09-30 19:10] VITALS: BP 195/87
[2016-09-30] MEDS: MIRTAZAPINE 15 MG TABLET PO SCH (20:37)
[2016-09-30] MEDS: QUETIAPINE 25MG TABLET PO SCH (20:37)
[2016-09-30] MEDS: SIMVASTATIN 20 MG TABLET PO SCH (20:37)
[2016-09-30 21:17] VITALS: BP 145/70
[2016-10-01 02:13] VITALS: BP 101/57
[2016-10-01] MEDS: VANCOMYCIN 50 MG/ML ORAL SUSP PO SCH ×4 (06:04→17:48)
[2016-10-01] MEDS: CARVEDILOL 6.25 MG TABLET PO SCH ×2 (06:04→17:48)
[2016-10-01] MEDS: ASPIRIN 81 MG TABLET EC PO SCH (06:05)
[2016-10-01] MEDS: SODIUM CHLORIDE 0.9% 1,000 ML IV SCH ×2 (07:10→20:30)
[2016-10-01 08:38] VITALS: BP 114/63
[2016-10-01] MEDS: DABIGATRAN 150 MG CAPSULE PO SCH ×2 (09:00→19:59)
[2016-10-01] MEDS: LISINOPRIL 20 MG TABLET PO SCH ×2 (09:00→19:58)
[2016-10-01] MEDS: DILTIAZEM 120 MG CAP.ER.12H PO SCH (09:00)
[2016-10-01] MEDS: LACTOBACILLUS 1GM/ PACKET PO SCH ×3 (09:41→19:56)
[2016-10-01 12:48] VITALS: BP 120/61
[2016-10-01 17:47] VITALS: BP 164/66
[2016-10-01 18:25] VITALS: BP 198/64
[2016-10-01] MEDS: SIMVASTATIN 20 MG TABLET PO SCH (19:57)
[2016-10-01] MEDS: MIRTAZAPINE 15 MG TABLET PO SCH (19:58)
[2016-10-01] MEDS: QUETIAPINE 25MG TABLET PO SCH (19:58)
[2016-10-01] MEDS ORDERED: RISPERIDONE 0.5 MG TABLET PO SCH (21:30)
[2016-10-02] MEDS: VANCOMYCIN 50 MG/ML ORAL SUSP PO SCH ×4 (00:40→17:54)
[2016-10-02 01:43] VITALS: BP 139/76
[2016-10-02] MEDS: ASPIRIN 81 MG TABLET EC PO SCH (06:03)
[2016-10-02] MEDS: CARVEDILOL 6.25 MG TABLET PO SCH ×2 (06:03→17:54)
[2016-10-02 07:41] VITALS: BP 156/76
[2016-10-02] MEDS: DILTIAZEM 120 MG CAP.ER.12H PO SCH (09:00)
[2016-10-02] MEDS: DABIGATRAN 150 MG CAPSULE PO SCH ×2 (09:40→22:07)
[2016-10-02] MEDS: LISINOPRIL 20 MG TABLET PO SCH ×2 (09:40→22:10)
[2016-10-02] MEDS: LACTOBACILLUS 1GM/ PACKET PO SCH ×3 (09:40→22:08)
[2016-10-02] MEDS: SODIUM CHLORIDE 0.9% 1,000 ML IV SCH ×2 (09:50→23:10)
[2016-10-02 17:50] VITALS: BP 196/77
[2016-10-02 19:55] VITALS: BP 170/67
[2016-10-02] MEDS ORDERED: LINEZOLID PMX 600MG/300ML 300 ML IV SCH (20:00)
[2016-10-02] MEDS: MIRTAZAPINE 15 MG TABLET PO SCH (22:10)
[2016-10-02] MEDS: QUETIAPINE 25MG TABLET PO SCH (22:10)
[2016-10-02] MEDS: LINEZOLID 600 MG TABLET PO SCH (22:11)
[2016-10-02] MEDS: SIMVASTATIN 20 MG TABLET PO SCH (22:11)
[2016-10-03] MEDS: VANCOMYCIN 50 MG/ML ORAL SUSP PO SCH ×4 (00:19→17:45)
[2016-10-03 00:41] VITALS: BP 164/67
[2016-10-03 05:51] LABS: BLOOD UREA NITROGEN 21 mg/dL (7-18)
[2016-10-03] MEDS: ASPIRIN 81 MG TABLET EC PO SCH (06:07)
[2016-10-03] MEDS: CARVEDILOL 6.25 MG TABLET PO SCH ×2 (06:08→17:45)
[2016-10-03 08:00] VITALS: BP 138/74
[2016-10-03] MEDS: DABIGATRAN 150 MG CAPSULE PO SCH ×3 (10:53→20:11)
[2016-10-03] MEDS: LACTOBACILLUS 1GM/ PACKET PO SCH ×3 (10:53→19:55)
[2016-10-03] MEDS: DILTIAZEM 120 MG CAP.ER.12H PO SCH (10:53)
[2016-10-03] MEDS: LINEZOLID 600 MG TABLET PO SCH ×2 (10:54→19:57)
[2016-10-03] MEDS: LISINOPRIL 20 MG TABLET PO SCH ×2 (10:54→19:57)
[2016-10-03 12:00] VITALS: BP 140/73
[2016-10-03] MEDS: SODIUM CHLORIDE 0.9% 1,000 ML IV SCH (12:30)
[2016-10-03] MEDS: MIRTAZAPINE 15 MG TABLET PO SCH (19:56)
[2016-10-03] MEDS: SIMVASTATIN 20 MG TABLET PO SCH (19:56)
[2016-10-03] MEDS: QUETIAPINE 25MG TABLET PO SCH (19:56)
[2016-10-03 20:15] VITALS: BP 146/71
[2016-10-04] MEDS: VANCOMYCIN 50 MG/ML ORAL SUSP PO SCH ×3 (00:03→11:15)
[2016-10-04 01:02] VITALS: BP 142/85
[2016-10-04] MEDS: ASPIRIN 81 MG TABLET EC PO SCH (05:33)
[2016-10-04] MEDS: CARVEDILOL 6.25 MG TABLET PO SCH (05:34)
[2016-10-04] MEDS ORDERED: LINE600T37 PO (07:16)
[2016-10-04] MEDS ORDERED: VANC125C2 PO (07:16)
[2016-10-04 08:09] VITALS: BP 151/76
[2016-10-04] MEDS: LISINOPRIL 20 MG TABLET PO SCH (09:00)
[2016-10-04] MEDS: LACTOBACILLUS 1GM/ PACKET PO SCH (09:00)
[2016-10-04] MEDS: DABIGATRAN 150 MG CAPSULE PO SCH (09:00)
[2016-10-04] MEDS: LINEZOLID 600 MG TABLET PO SCH (09:00)
[2016-10-04] MEDS: DILTIAZEM 120 MG CAP.ER.12H PO SCH (09:00)
[2016-10-04 13:42] VITALS: BP 181/67
== END 2016-10-04 07:15 | disposition home or self-care (01) | DRG 371 ==
LOC: ED 19:23 → EDIP 20:04 → 3NE 22:26
PROC: 0T9B70Z Drainage of Bladder with Drainage Device, Via Natural or Artificial Opening (ICD-10-PCS; principal; 2016-09-23)
DX: A04.7 Enterocolitis due to Clostridium difficile (principal); E43 Unspecified severe protein-calorie malnutrition; D68.69 Other thrombophilia; J90 Pleural effusion, not elsewhere classified; N39.0 Urinary tract infection, site not specified; I74.8 Embolism and thrombosis of other arteries; F03.90 Unspecified dementia, unspecified severity, without behavioral disturbance, psychotic disturbance, mood disturbance, and anxiety; I70.8 Atherosclerosis of other arteries; B95.2 Enterococcus as the cause of diseases classified elsewhere; E03.9 Hypothyroidism, unspecified; E78.00 Pure hypercholesterolemia, unspecified; E86.0 Dehydration; E78.5 Hyperlipidemia, unspecified; I16.0 Hypertensive urgency; I48.91 Unspecified atrial fibrillation; J84.10 Pulmonary fibrosis, unspecified; K21.9 Gastro-esophageal reflux disease without esophagitis; R62.7 Adult failure to thrive; Z66 Do not resuscitate; Z79.01 Long term (current) use of anticoagulants; Z86.14 Personal history of Methicillin resistant Staphylococcus aureus infection; Z87.891 Personal history of nicotine dependence; Z86.73 Personal history of transient ischemic attack (TIA), and cerebral infarction without residual deficits; Z90.710 Acquired absence of both cervix and uterus; Z79.899 Other long term (current) drug therapy; Z88.2 Allergy status to sulfonamides; Z88.8 Allergy status to other drugs, medicaments and biological substances; Z88.5 Allergy status to narcotic agent; Z68.20 Body mass index [BMI] 20.0-20.9, adult
CPT/HCPCS: 36415; 71010; 80048; 80053; 81001; 83735; 84484; 85025; 87077; 87086; 87186; 87324; 93005; 93931; 99285; J3370; J7030

== ENCOUNTER 2017-05-03 04:16 | Emergency (ER) | payer OTHER ==
[~2017-05-03] VITALS: Ht 152.4 cm; Wt 45.5 kg
[~2017-05-03 04:16] MED LIST changes: +ACID1GRA3 PO; +ASPI-621 PO; +ASPI325T17 PO; -ASPI325T4 PO; +CARV6.2512 PO; +DOCU-131 PO; -DOCU-30 PO; +DOCU100C33; -DOCU100C8; -HYDR-3144 PO; +HYDR-3245 PO; +LINE600T37 PO; +LISI-170 PO; +LISI5TAB7 PO; +MIRT30TA4 PO; +QUET25TA PO; +VANC125C2 PO
[2017-05-03 06:03] LABS: RAPID INFLUENZA A Negative (Negative); RAPID INFLUENZA B Negative (Negative)
[2017-05-03 06:08] VITALS: BP 179/75
[2017-05-03 06:14] LABS: BLOOD UREA NITROGEN 22 mg/dL (7-18)
[2017-05-03 06:20] LABS: PATH.CAST-FLAG NOT PRESENT; SPERM-FLAG NOT PRESENT; SRC-FLAG NOT PRESENT; XTAL-FLAG NOT PRESENT; YLC-FLAG NOT PRESENT
[2017-05-03 06:59] LABS: HEMATOCRIT 38.9 % (34.6-47.8); HEMOGLOBIN 12.8 g/dL (11.7-16.4); WHITE BLOOD COUNT 10.3 x10^3/uL (3.4-10)
== END 2017-05-03 07:36 | disposition home or self-care (01) ==
LOC: ED 05:45
DX: N30.01 Acute cystitis with hematuria (principal); B34.9 Viral infection, unspecified
CPT/HCPCS: 36415; 71020; 80048; 81001; 82040; 85025; 87086; 87147; 87400; 93005; 99285

== ENCOUNTER 2017-12-06 12:20 | Emergency (ER) | payer OTHER ==
[~2017-12-06] VITALS: Ht 152.4 cm; Wt 47.7 kg
[2017-12-06] MEDS ORDERED: L.E.T SOLUTION TP ONE ×2 (13:22→13:30)
[2017-12-06] MEDS ORDERED: LIDOCAINE-MPF 2%, 2ML ONE (14:23)
[2017-12-06] MEDS ORDERED: BACITRACIN ZINC OINT 500U/GM, 0.9 GM ONE (14:38)
[2017-12-06] MEDS ORDERED: BUPIVACAINE 0.25% ONE (14:38)
[2017-12-06] MEDS ORDERED: DIPH,PERTUSS(ACELL),TET VAC/PF 0.5 ML IM-VACC ONE ×2 (15:47→16:00)
[2017-12-06 15:59] VITALS: BP 191/76
== END 2017-12-06 16:01 | disposition home or self-care (01) ==
LOC: ED 14:14
DX: S81.812A Laceration without foreign body, left lower leg, initial encounter (principal); I48.91 Unspecified atrial fibrillation; E78.00 Pure hypercholesterolemia, unspecified; K21.9 Gastro-esophageal reflux disease without esophagitis; E03.9 Hypothyroidism, unspecified; Z90.710 Acquired absence of both cervix and uterus; Z87.891 Personal history of nicotine dependence; Z86.73 Personal history of transient ischemic attack (TIA), and cerebral infarction without residual deficits; Z88.1 Allergy status to other antibiotic agents; Z88.6 Allergy status to analgesic agent; Z88.2 Allergy status to sulfonamides; X58.XXXA Exposure to other specified factors, initial encounter; Y93.89 Activity, other specified; Y99.8 Other external cause status; Y92.009 Unspecified place in unspecified non-institutional (private) residence as the place of occurrence of the external cause
CPT/HCPCS: 12032; 90471; 90715; 99284

== ENCOUNTER 2017-12-08 17:38 | Emergency (ER) | payer OTHER ==
[~2017-12-08] VITALS: Ht 152.4 cm; Wt 40.8 kg
[2017-12-08 17:42] VITALS: BP 108/78
[2017-12-08] MEDS ORDERED: BACITRACIN ZINC OINT 500U/GM, 0.9 GM ONE (18:39)
== END 2017-12-08 19:22 | disposition home or self-care (01) ==
LOC: ED 19:17
DX: S81.812D Laceration without foreign body, left lower leg, subsequent encounter (principal); F03.90 Unspecified dementia, unspecified severity, without behavioral disturbance, psychotic disturbance, mood disturbance, and anxiety; I48.91 Unspecified atrial fibrillation; E78.00 Pure hypercholesterolemia, unspecified; K21.9 Gastro-esophageal reflux disease without esophagitis; E03.9 Hypothyroidism, unspecified; Z90.710 Acquired absence of both cervix and uterus; Z91.041 Radiographic dye allergy status; Z86.73 Personal history of transient ischemic attack (TIA), and cerebral infarction without residual deficits; Z88.2 Allergy status to sulfonamides; X58.XXXD Exposure to other specified factors, subsequent encounter
CPT/HCPCS: 99282

== ENCOUNTER 2018-02-01 19:43 | Inpatient (IN) | payer OTHER ==
[~2018-02-01] VITALS: Ht 152.4 cm; Wt 42.3 kg
[2018-02-01] MEDS ORDERED: SODIUM CHLORIDE FLUSH 10ML SYR IVF ONE (20:30)
[2018-02-01 20:40] LABS: BASOPHILS # (AUTO) 0.02 x10^3/uL (0-0.1); BASOPHILS % (AUTO) 0 % (0-1); EOSINOPHILS # (AUTO) 0.06 x10^3/uL (0-0.4); EOSINOPHILS % (AUTO) 1 % (1-7); LYMPHOCYTES # (AUTO) 2.59 x10^3/uL (1-3.4); LYMPHOCYTES % (AUTO) 30 % (22-44); MD NO; MEAN CORPUSCULAR HEMOGLOBIN 31.1 pg (27.0-34.8); MEAN CORPUSCULAR HGB CONC 33.9 g/dL (32.4-35.8); MEAN CORPUSCULAR VOLUME 91.7 fL (80-100); MEAN PLATELET VOLUME 7.7 fL (7.4-10.4); MONOCYTES # (AUTO) 0.57 x10^3/uL (0.2-0.8); MONOCYTES % (AUTO) 7 % (2-9); NEUTROPHILS # (AUTO) 5.36 x10^3/uL (1.8-6.8); NEUTROPHILS % (AUTO) 62 % (42-75); PLATELET COUNT 329 x10^3/uL (130-400); RED BLOOD COUNT 4.73 x10^6/uL (3.82-5.3); RED CELL DISTRIBUTION WIDTH 13.6 % (9.6-15.2)
[2018-02-01 20:51] LABS: INTERNATIONAL NORMALIZED RATIO 0.91 (0.93-1.1); PROTHROMBIN TIME 9.5 Seconds (9.6-11.5)
[2018-02-01 20:52] LABS: ALANINE AMINOTRANSFERASE 19 U/L (12-78); ALBUMIN 3.2 g/dL (3.4-5.0); ANION GAP 8 mmol/L (5-15); CALCIUM 9.3 mg/dL (8.5-10.1); CHLORIDE 103 mmol/L (98-107); CREATININE 0.86 mg/dL (0.55-1.02)
[2018-02-01 20:55] LABS: ALKALINE PHOSPHATASE 121 U/L (45-117); BILIRUBIN,TOTAL 0.3 mg/dL (0.2-1.0); TOTAL PROTEIN 7.7 g/dL (6.4-8.2)
[2018-02-01 21:04] LABS: MICROSCOPIC AUTO
[2018-02-01 21:06] LABS: CULTURE INDICATED? YES
[2018-02-01] MEDS ORDERED: CEFTRIAXONE PMX 1GM/50ML 50 ML ONE (21:13)
[2018-02-01] MEDS ORDERED: CEFTRIAXONE 1,000 MG in SODIUM CHLORIDE 0.9% 50 ML IV ONE (21:30)
[2018-02-01] MEDS ORDERED: LABETALOL 5MG/ML, 20ML ONE (21:55)
[2018-02-01] MEDS ORDERED: LISINOPRIL 20 MG TABLET ONE (21:55)
[2018-02-01] MEDS ORDERED: LISINOPRIL 20 MG TABLET PO ONE (22:00)
[2018-02-01] MEDS ORDERED: SODIUM CHLORIDE FLUSH 10ML SYR IVF PRN (22:00)
[2018-02-01] MEDS ORDERED: LABETALOL 5MG/ML, 20ML IVPush ONE (22:00)
[2018-02-01 22:50] VITALS: BP 210/77
[2018-02-01] MEDS ORDERED: ENOXAPARIN 40 MG/0.4 ML SQ SCH (23:00)
[2018-02-01] MEDS: SODIUM CHLORIDE 0.9% 1,000 ML IV SCH (23:52)
[2018-02-02 00:50] VITALS: BP 218/74
[2018-02-02] MEDS: hydrALAzine 20 MG/ML, 1ML IVPush PRN ×2 (00:55→02:37)
[2018-02-02 02:22] VITALS: BP 202/78
[2018-02-02 03:25] VITALS: BP 134/70
[2018-02-02 07:44] VITALS: BP 172/76
[2018-02-02] MEDS: SODIUM CHLORIDE 0.9% 1,000 ML IV SCH (11:44)
[2018-02-02 12:30] LABS: FREE T4 (FREE THYROXINE) 1.16 ng/dL (0.76-1.46); THYROID STIMULATING HORMONE 2.82 mIU/L (0.358-3.740)
[2018-02-02 13:28] VITALS: BP 206/80
[2018-02-02] MEDS: hydrALAzine 20 MG/ML, 1ML IV PRN (13:52)
[2018-02-02 19:26] VITALS: BP 189/69
[2018-02-02] MEDS ORDERED: CEFTRIAXONE 1,000 MG IM SCH (21:30)
[2018-02-02] MEDS: CEFTRIAXONE 1,000 MG in SODIUM CHLORIDE 0.9% 50 ML IV SCH (22:24)
[2018-02-03] MEDS: hydrALAzine 20 MG/ML, 1ML IV PRN (00:01)
[2018-02-03 00:30] VITALS: BP 167/65
[2018-02-03] MEDS: SODIUM CHLORIDE 0.9% 1,000 ML IV SCH ×2 (01:51→14:47)
[2018-02-03 02:00] VITALS: BP 170/67
[2018-02-03 08:09] VITALS: BP 177/70
[2018-02-03 13:27] VITALS: BP 187/64
[2018-02-03 19:47] VITALS: BP 175/69
[2018-02-03] MEDS: CEFTRIAXONE 1,000 MG in SODIUM CHLORIDE 0.9% 50 ML IV SCH (22:39)
[2018-02-03] MEDS: ENOXAPARIN 30 MG/0.3 ML SQ SCH ×2 (23:32)
[2018-02-04 01:52] VITALS: BP 109/76
[2018-02-04] MEDS: SODIUM CHLORIDE 0.9% 1,000 ML IV SCH (05:10)
[2018-02-04 06:44] VITALS: BP 110/85
[2018-02-04 13:50] VITALS: BP 126/84
[2018-02-04] MEDS: D5%-0.9% NACL 1,000 ML IV SCH (14:00)
[2018-02-04 20:16] VITALS: BP 118/80
[2018-02-04] MEDS: CEFTRIAXONE 1,000 MG in SODIUM CHLORIDE 0.9% 50 ML IV SCH (22:21)
[2018-02-04] MEDS: ENOXAPARIN 30 MG/0.3 ML SQ SCH (22:22)
[2018-02-05 01:11] VITALS: BP 104/75
[2018-02-05] MEDS: D5%-0.9% NACL 1,000 ML IV SCH ×2 (03:54→16:59)
[2018-02-05 09:00] VITALS: BP 91/53
[2018-02-05 14:16] VITALS: BP 95/67
[2018-02-05 18:41] VITALS: BP 110/61
[2018-02-05] MEDS: ENOXAPARIN 30 MG/0.3 ML SQ SCH (21:01)
[2018-02-05] MEDS: CEFTRIAXONE 1,000 MG in SODIUM CHLORIDE 0.9% 50 ML IV SCH (21:02)
[2018-02-06 01:39] VITALS: BP 116/72
[2018-02-06 05:51] LABS: CREATININE 0.46 mg/dL (0.55-1.02)
[2018-02-06] MEDS: D5%-0.9% NACL 1,000 ML IV SCH ×2 (06:00→20:57)
[2018-02-06 10:15] VITALS: BP 107/65
[2018-02-06 12:02] VITALS: BP 111/71
[2018-02-06 19:26] VITALS: BP 110/63
[2018-02-06] MEDS: CEFTRIAXONE 1,000 MG in SODIUM CHLORIDE 0.9% 50 ML IV SCH (20:57)
[2018-02-06] MEDS: ENOXAPARIN 30 MG/0.3 ML SQ SCH (23:19)
[2018-02-07 00:15] VITALS: BP 102/67
[2018-02-07 08:03] VITALS: BP 116/75
[2018-02-07] MEDS: D5%-0.9% NACL 1,000 ML IV SCH (11:00)
[2018-02-07 14:32] VITALS: BP 101/68
[2018-02-07] MEDS ORDERED: CEFTRIAXONE PMX 1GM/50ML 50 ML IV SCH (21:00)
== END 2018-02-07 20:28 | disposition hospice, home (50) | DRG 64 ==
LOC: ED 20:52 → EDIP 21:32 → 4EST 22:48 → 4WST 02-05 05:53
PROVIDERS: ADMIT Hospitalist; ATTEND Hospitalist
PROC: 0T9B70Z Drainage of Bladder with Drainage Device, Via Natural or Artificial Opening (ICD-10-PCS; principal; 2018-02-01)
DX: I63.512 Cerebral infarction due to unspecified occlusion or stenosis of left middle cerebral artery (principal); G93.40 Encephalopathy, unspecified; D68.59 Other primary thrombophilia; G81.91 Hemiplegia, unspecified affecting right dominant side; E03.9 Hypothyroidism, unspecified; E78.00 Pure hypercholesterolemia, unspecified; E78.5 Hyperlipidemia, unspecified; F03.90 Unspecified dementia, unspecified severity, without behavioral disturbance, psychotic disturbance, mood disturbance, and anxiety; I10 Essential (primary) hypertension; I48.91 Unspecified atrial fibrillation; K21.9 Gastro-esophageal reflux disease without esophagitis; N30.90 Cystitis, unspecified without hematuria; R13.10 Dysphagia, unspecified; R29.6 Repeated falls; G31.89 Other specified degenerative diseases of nervous system; S40.011A Contusion of right shoulder, initial encounter; W18.39XA Other fall on same level, initial encounter; Z51.5 Encounter for palliative care; Z66 Do not resuscitate; Z86.14 Personal history of Methicillin resistant Staphylococcus aureus infection; Z86.19 Personal history of other infectious and parasitic diseases; Z86.73 Personal history of transient ischemic attack (TIA), and cerebral infarction without residual deficits; Z87.891 Personal history of nicotine dependence; Z90.710 Acquired absence of both cervix and uterus; Z91.81 History of falling; Z87.440 Personal history of urinary (tract) infections; Y93.89 Activity, other specified; Y92.098 Other place in other non-institutional residence as the place of occurrence of the external cause; Y99.8 Other external cause status
CPT/HCPCS: 36415; 70450; 71045; 80053; 81001; 82565; 82962; 84439; 84443; 85025; 85610; 85730; 86480; 87077; 87086; 93005; 96365; 96375; G0378; J0696; J1650; J7042; J0360; J7030